=== PATIENT | male | born 1950 | race Caucasian/White ===

== ENCOUNTER 2019-05-21 14:21 | Emergency (ER) | payer OTHER ==
[~2019-05-21] VITALS: Ht 175.3 cm; Wt 81.7 kg
[~2019-05-21 14:21] MED LIST: CELE100 PO; CELE200; CODACE30; CYCL10 PO; LEVSOD100 PO; LISHYD2025 PO; MELO7.5 PO; MULVITA; NAPR500 PO; OXYACE5T; OXYACE5T PO; PRED10 PO; TIZA4; TIZA4 PO; TRAM50 PO; TRAZ150T57 PO; [UNRECOGNIZED DRUG - OTHER]
[2019-05-21] MEDS ORDERED: ROSUVASTATIN CA10 MG PO (16:04)
[2019-05-21] MEDS ORDERED: ZESTORETIC 20-121 EA PO (16:04)
[2019-05-21] MEDS ORDERED: EUTHYROX112 MC1 PO (16:04)
[2019-05-21] MEDS ORDERED: METPRE4DP PO (16:07)
[2019-05-21] MEDS ORDERED: Robaxin-750750 MG PO (16:07)
[2019-05-21] MEDS ORDERED: Percocet 7.5-31 EACH PO (16:07)
== END 2019-05-21 16:25 | disposition home or self-care (01) ==
LOC: ER 14:21
DX: M54.17 Radiculopathy, lumbosacral region (principal); I10 Essential (primary) hypertension; E03.9 Hypothyroidism, unspecified; F17.200 Nicotine dependence, unspecified, uncomplicated; Z88.5 Allergy status to narcotic agent; Z88.0 Allergy status to penicillin; Z79.899 Other long term (current) drug therapy
CPT/HCPCS: 99283

== ENCOUNTER 2019-06-09 12:54 | Emergency (ER) | payer OTHER ==
[~2019-06-09] VITALS: Ht 175.3 cm; Wt 81.7 kg
[~2019-06-09 12:54] MED LIST changes: +EUTHYROX112 MC1 PO; +METPRE4DP PO; +Percocet 7.5-31 EACH PO; +ROSUVASTATIN CA10 MG PO; +Robaxin-750750 MG PO; +ZESTORETIC 20-121 EA PO
[2019-06-09] MEDS ORDERED: Ultram50 MG PO (16:07)
[2019-06-09] MEDS ORDERED: Robaxin-750750 MG PO (16:07)
[2019-06-09] MEDS ORDERED: METPRE4DP PO (16:07)
== END 2019-06-09 16:17 | disposition home or self-care (01) ==
LOC: ER 12:54
DX: M54.16 Radiculopathy, lumbar region (principal); R25.8 Other abnormal involuntary movements; E03.9 Hypothyroidism, unspecified; I10 Essential (primary) hypertension; F17.210 Nicotine dependence, cigarettes, uncomplicated
CPT/HCPCS: 72100; 99283-25

== ENCOUNTER 2020-02-18 09:39 | Day surgery (SDC) | payer OTHER ==
[~2020-02-18] VITALS: Ht 175.3 cm; Wt 83.7 kg
[~2020-02-18 09:39] MED LIST changes: +ONDA4ODT MM; +Ultram50 MG PO
[2020-02-18] MEDS ORDERED: LISI20 PO (10:19)
[2020-02-18] MEDS ORDERED: AMLODIPINE BES2.5 MG PO (10:19)
--- NOTE | 2020-02-18 10:44 | NUR ---
Ambulatory in Day Surgery. Patient states colon prep results clear. History, Chart, Medications and Allergies reviewed before start of procedure. Patient States Post-Procedure ride home has been arranged.
--- NOTE | 2020-02-18 11:14 | NUR ---
02/18/20 1114 Damián Conteh History, Chart, Medications and Allergies reviewed before start of procedure.MONITOR INTACT WITH CONTINUOUS PULSE OXIMETRY AND INTERMITTENT BP.3-LEAD EKG REVIEWED WITH PHYSICIAN PRIOR TO START OF PROCEDURE.O2 VIA N/C INTACT THROUGHOUT SEDATION/PROCEDURE. PATIENT DETERMINED TO BE ASA APPROPRIATE FOR PROPOFOL SEDATION PRIOR TO START OF PROCEDURE BY DR. DUMAS.
== END 2020-02-18 12:13 | disposition home or self-care (01) ==
LOC: ORSCMMR 09:39 → ORD 10:30 → ORSCMMR 11:00
PROVIDERS: Internal Medicine Gastroenterology
PROC: 0DBN8ZX Excision of Sigmoid Colon, Via Natural or Artificial Opening Endoscopic, Diagnostic (ICD-10-PCS; principal; 2020-02-18 11:00)
PROC: 0DBK8ZX Excision of Ascending Colon, Via Natural or Artificial Opening Endoscopic, Diagnostic (ICD-10-PCS; principal; 2020-02-18 11:00)
DX: Z12.11 Encounter for screening for malignant neoplasm of colon (principal); Z86.010 Personal history of colon polyps; D12.2 Benign neoplasm of ascending colon; D12.5 Benign neoplasm of sigmoid colon; E78.00 Pure hypercholesterolemia, unspecified; E03.9 Hypothyroidism, unspecified; I10 Essential (primary) hypertension; Z87.891 Personal history of nicotine dependence; Z79.82 Long term (current) use of aspirin; Z79.899 Other long term (current) drug therapy
CPT/HCPCS: 88305; J2704; J7120

== ENCOUNTER 2021-10-19 07:25 | Emergency (ER) | payer OTHER ==
[~2021-10-19] VITALS: Ht 175.3 cm; Wt 77.1 kg
[~2021-10-19 07:25] MED LIST changes: +AMLODIPINE BES2.5 MG PO; +LISI20 PO
== END 2021-10-19 10:20 | disposition home or self-care (01) ==
LOC: ER 07:25
DX: S16.1XXA Strain of muscle, fascia and tendon at neck level, initial encounter (principal); W22.8XXA Striking against or struck by other objects, initial encounter; I10 Essential (primary) hypertension; E03.9 Hypothyroidism, unspecified; F17.210 Nicotine dependence, cigarettes, uncomplicated; Z88.0 Allergy status to penicillin; Z88.5 Allergy status to narcotic agent
CPT/HCPCS: 72125; 99283-25

== ENCOUNTER 2024-05-27 18:37 | Emergency (ER) | payer OTHER ==
[~2024-05-27] VITALS: Ht 175.3 cm; Wt 80.7 kg
[2024-05-27] MEDS ORDERED: CefTRIAXone Sodium 1,000 MG in NS 100 ML IV ONE (19:10)
[2024-05-27] MEDS ORDERED: NS 1,000 ML IV SCH (19:10)
[2024-05-27 19:17] LABS: BASOPHILS ABSOLUTE AUTO 0.06 K/mm3 (0.00-0.23); BASOPHILS PERCENT AUTO 0 % (0-2); EOSINOPHILS ABSOLUTE AUTO 0.07 K/mm3 (0.00-0.68); EOSINOPHILS PERCENT AUTO 0 % (0-6); Hematocrit 39.7 % (37.0-53.0); Hemoglobin 13.8 g/dL (13.5-17.5); IMMATURE GRAN ABSOLUTE AUTO 0.09 K/mm3 (0.00-0.10); IMMATURE GRAN PERCENT AUTO 1 % (0-1); LYMPHOCYTES ABSOLUTE AUTO 2.11 K/mm3 (0.84-5.20); LYMPHOCYTES PERCENT AUTO 12 % (21-46); MONOCYTES PERCENT AUTO 10 % (4-13); Mean Corpuscular HGB 31.1 pg (26.0-34.0); Mean Corpuscular HGB Conc 34.8 g/dL (31.5-36.5); Mean Corpuscular Volume 89 fL (80-100); Mean Platelet Volume 9.3 fL (9.1-12.4); NEUTROPHILS ABSOLUTE AUTO 13.46 K/mm3 (1.96-9.15); NEUTROPHILS PERCENT AUTO 77 % (41-73); Platelet Count 209 K/mm3 (150-400); RDW Coefficient Variation 12.9 % (11.7-14.2); RDW Standard Deviation 42.2 fL (35.1-46.3); Red Blood Cell Count 4.44 M/mm3 (4.30-5.90); White Blood Cell Count 17.59 K/mm3 (4.00-11.30)
[2024-05-27] MEDS ORDERED: TAMS.4ER PO (19:37)
[2024-05-27] MEDS ORDERED: OMEP20ER (19:37)
[2024-05-27 19:41] LABS: Albumin, Blood 3.3 g/dL (3.4-5.0); Albumin/Globulin Ratio 0.8 (0.8-1.8); Bilirubin, Total 0.8 mg/dL (0.1-1.0); Bun/Creatinine Ratio 13.7 (12.0-20.0); Calcium, Blood 8.7 mg/dL (8.5-10.1); Creatinine, Blood 1.53 mg/dL (0.60-1.20); Globulin, Blood 4.2 g/dL (2.2-4.0); Potassium, Blood 4.1 mmol/L (3.5-5.5); Total Protein, Blood 7.5 g/dL (6.4-8.2)
[2024-05-27 21:11] LABS: Source, Urine Clean Catch
[2024-05-27 21:20] LABS: Appearance, Urine Hazy (Clear); Bilirubin, Urine Neg (Neg); Blood, Urine 5+ (Neg); Color, Urine Amber (P-Yellow); Glucose Qualitative, Urine Neg (Neg); Ketones, Urine Neg (Neg); Leukocyte Esterase, Urine 3+ (Neg); Nitrite, Urine Neg (Neg); Protein, Urine 3+ (Neg); Urobilinogen, Urine 1+ (Normal)
[2024-05-27 21:30] VITALS: BP 121/63
[2024-05-27 21:30] LABS: Bacteria Many /hpf; Squamous Epithelial Cells Rare /hpf (Few); White Blood Cells, Urine 25-50 /hpf (0-5)
== END 2024-05-27 21:48 | disposition home or self-care (01) ==
LOC: ER 18:37
PROVIDERS: Student in an Organized Health Care Education/Training Program
DX: N39.0 Urinary tract infection, site not specified (principal); I10 Essential (primary) hypertension; E03.9 Hypothyroidism, unspecified; F17.210 Nicotine dependence, cigarettes, uncomplicated; R31.29 Other microscopic hematuria; Z88.5 Allergy status to narcotic agent; Z88.0 Allergy status to penicillin; Z79.890 Hormone replacement therapy; Z79.899 Other long term (current) drug therapy
CPT/HCPCS: 36415; 80053; 81001; 83605; 84153; 85025; 87040; 87086; 93005; 93010; 96365; 99283-25; J0696; J7030